=== PATIENT | female | born 1990 | race Hispanic/Latino ===

== ENCOUNTER 2024-09-23 15:33 | Emergency (ER) | payer BC, SELFPAY ==
[2024-09-23] MEDS ORDERED: Orphenadrine Citrate 60 MG/2 ML VIAL ONE ×2 (16:10→17:05)
[2024-09-23 17:59] LABS: Pregnancy Test - Urine (BHCG) Negative (Negative); Pregu Control Background? CLEAR/WHITE (CLR/WHITE); Pregu Control Bar Appear? YES (CONTROL BAR)
[2024-09-23] MEDS ORDERED: predniSONE 20 MG TAB ONE (19:14)
== END 2024-09-23 19:25 | disposition home or self-care (01) ==
LOC: MADERS 15:33
DX: T14.8XXA Other injury of unspecified body region, initial encounter (principal); E66.9 Obesity, unspecified; V64.5XXA Driver of heavy transport vehicle injured in collision with heavy transport vehicle or bus in traffic accident, initial encounter; Y93.89 Activity, other specified; Y92.410 Unspecified street and highway as the place of occurrence of the external cause
CPT/HCPCS: 70450; 71250; 72125; 74177; 81025; 96372; J1885; J2360; J7512